=== PATIENT | female | born 1985 | race African-American/Black ===

== ENCOUNTER 2019-03-25 16:13 | Observation (INO) ==
[2019-03-25] MEDS ORDERED: ADENOSINE 6 MG/2 ML VIAL ONE (16:29)
[2019-03-25] MEDS ORDERED: MAGNESIUM HYDROXIDE SUSP 30 ML UDCUP PO PRN (16:43)
[2019-03-25] MEDS ORDERED: BISACODYL 10 MG SUPP RECTAL PRN (16:43)
[2019-03-25] MEDS ORDERED: ACETAMINOPHEN 325 MG TABLET PO PRN (16:43)
[2019-03-25] MEDS ORDERED: IBUPROFEN 800 MG TABLET PO PRN (16:43)
[2019-03-25] MEDS ORDERED: ONDANSETRON 4 MG/2 ML VIAL IV PRN (16:43)
[2019-03-25] MEDS ORDERED: ADENOSINE 6 MG/2 ML VIAL IV STA (17:00)
[2019-03-25 17:03] LABS: Basophils % 0.2 % (0.0-0.8); Eosinophils # 0.1 10*3/uL (0.0-0.87); Eosinophils % 1.3 % (0.00-10.9); Hematocrit 29.8 VOL% (35.7-47.0); Immature Granulocytes % 0.6 %; Immature Granulocytes Absolute 0.05 #; Lymphocytes # 1.6 10*3/uL (1.4-4.0); Lymphocytes % 17.5 % (21.3-54.2); Mean Corpuscular HGB Conc 33.6 GM/DL (32-36); Mean Corpuscular Volume 94.3 FL (87-102); Mean Platelet Volume 9.5 FL (9.6-12.0); Monocytes % 7.5 % (1.7-12.7); Neutrophils % 72.9 % (38.7-73.9); Platelet Count 342 T/CUMM (130-400); Red Blood Count 3.16 MC/CUMM (3.8-5.5); Red Cell Distribution Width 13.2 % (9.3-17.3)
[2019-03-25 17:35] LABS: Albumin 2.3 G/DL (3.4-5.0); Bilirubin,Total 1.1 MG/DL (0.2-1.0); Calcium 8.3 MG/DL (8.5-10.1); Osmolality,Calculated 275.5 MOS/KG (273-304); Thyroid Stimulating Hormone 1.31 uIU/ml (0.358-3.74); Total Protein 6.6 G/DL (6.4-8.3)
[2019-03-25] MEDS ORDERED: POTASSIUM CHLORIDE 20 MEQ TABLET PO ONE (19:26)
[2019-03-25] MEDS ORDERED: MAGNESIUM SULF RIDER 2 GM in PREMIX 1 EACH IV ONE (19:26)
[2019-03-25] MEDS: DOCUSATE SODIUM 100 MG CAPSULE PO SCH (21:44)
[2019-03-25] MEDS: METOPROLOL TARTRATE 25 MG TABLET PO SCH (21:44)
[2019-03-26 05:42] LABS: Calcium 7.9 MG/DL (8.5-10.1); Osmolality,Calculated 273.5 MOS/KG (273-304)
[2019-03-26] MEDS: METOPROLOL TARTRATE 25 MG TABLET PO SCH (08:52)
[2019-03-26] MEDS: DOCUSATE SODIUM 100 MG CAPSULE PO SCH (08:52)
[2019-03-26 11:38] VITALS: BP 112/64
== END 2019-03-26 12:48 | disposition home or self-care (01) ==
LOC: N.ED 16:13 → N.EDINP 16:13 → N.TELES 17:20
PROVIDERS: ADMIT Obstetrics & Gynecology; ATTEND Obstetrics & Gynecology